=== PATIENT | female | born 1990 | race Two or more races ===

== ENCOUNTER 2016-10-14 21:05 | Emergency (ER) | payer MEDICAID, OTHER ==
[2016-10-14] MEDS ORDERED: LIDOCAINE 1% 5 ML (METHYLPARABEN FREE) INF ONE (21:15)
[2016-10-14] MEDS ORDERED: BUPIVACAINE 0.25% 30 ML VIAL INF ONE (21:15)
[2016-10-14 21:16] VITALS: BP 123/75; PULSE 76; TEMP 98.6; BMI 19.1
[2016-10-14] MEDS ORDERED: TETANUS-DIPTHERIA-ACEL PERTUSS 0.5 ML SYR IM ONE (21:16)
--- NOTE | 2016-10-14 21:18 | EDPRACDOC ---
- General Information Stated Complaint: LEFT 4TH FINGER LAC Time Seen by Provider: 10/14/16 21:11 Information Source: Patient Home Medications: Home Medications POTASSIUM CHLORIDE Tablet [Klor-Con M20] 20 meq PO DAILY #30 tab 04/21/15 Tramadol HCl [Ultram] 50 mg PO Q6H #14 tab 04/21/15 Allergies/Adverse Reactions: Allergies Allergy/AdvReac Type Severity Reaction Status Date / Time codeine Allergy Hives* Verified 10/14/16 21:20 penicillin G Allergy Hives* Verified 10/14/16 21:20 - History of Present Illness Onset: 7 pm HPI: Pt states cut L 4h finger on conveyer belt at work around 7 pm. Tetanus unknown. Denies numbness Location: Reports: Left, 4th Finger Dominant Hand: Right Mechanism: Reports: Spontaneous Circumstances: Reports: Work-Related Tetanus Up To Date?: No Associated Signs & Symptoms: Reports: Laceration ED Past Medical History - History Reviewed Yes Nurses notes reviewed and agree except as marked - Patient Medical History GI/ History: Denies: Urinary Tract Infection - Social Medical History Smoking Status: Never smoker ETOH: None Substance Abuse: None EDM Review of Systems - Review of Systems Constitutional: No Symptoms Reported. negative: Fever, Chills, Weakness, Fatigue, Loss of Appetite Neurological: No Symptoms Reported. negative: Headache, Dizziness, Seizure, Numbness, Weakness, Speech Difficulty, Gait Difficulty Musculoskeletal: Hand Integumentary: Wound Allergic/Immunologic: No Symptoms Reported. negative: Hives, Itching Hematologic: No Symptoms Reported. negative: Lymphadenopathy, Easy Bruising, Easy Bleeding Psychiatric: No Symptoms Reported. negative: Anxiety, Depression, Hallucinations, Insomnia, Suicidal - Physical Exam Constitutional: Alert Oriented to: Time, Person, Place Last recorded Vital Signs: Last Vital Signs Temp 98.6 F 10/14/16 21:15 Pulse 76 10/14/16 21:15 Resp 18 10/14/16 21:15 BP 123/75 10/14/16 21:15 Pulse Ox 99 10/14/16 21:15 Oxygen Pulse Oxygen Saturation 99 O2 Device Room Air Oxygen Flow Rate Fraction of Inspired Oxygen ( FIO2) - HEENT Head: Normal ( normocephalic) - Respiratory/Cardiovascular Respiratory: Normal - CTA (BBS clear to auscultation without adventitious sounds ) Cardiovascular: Normal (RRR without murmur, gallop or rub) - Musculoskeletal Extremities: Normal (Normal tone, Pulses 2+ No cyanosis or edema, FROM) - Integumentary Skin: Normal, Warm, Dry Lymphatics: Normal (no adenopathy) - Neurologic Memory Impaired: Normal Motor Function: Normal (Normal tone, Pulses 2+ No cyanosis or edema, FROM) Mood Description: Normal Perception: Normal ED Hand Problem Physical Exam - Musculoskeletal Hand: Normal Wrist: Normal Digit: Mild Tenderness Digit Strength: Normal Nail: Normal Nailbed: Normal Soft Tissue: Normal Distal Function/Circulation: Normal - Integumentary Skin: Laceration Laceration Size (cm): 1 Laceration Type: Flap, Jagged Laceration Through To: Skin Tendon %: None Identified Lymphatics: Normal ED Procedures - Suture/Laceration Suture #1 Left Distal Finger Wound Length (cm): 2 Wound's Depth, Shape: irregular, flap Wound Explored: clean Irrigated w/ Saline (ccs): 50 Betadine Prep?: No Anesthesia: 1% Lidocaine, 0.25% Sensorcaine Volume Anesthetic (ccs): 3 Wound Repaired With: Sutures Suture Size/Type: 4:0, prolene Number of Sutures: 3 (simple) Layer Closure?: No - Differential Diagnosis Abrasion, Laceration, Open Fracture - Diagnostic Imaging Hand Image interpreted by: Radiologist IMPRESSION: No acute radiographic abnormality of the left fourth finger. Decision Time to Discharge: 22:19 - Departure Disposition: Home Condition: Good Final Diagnosis: L 4th finger lac 2 cm simple Instructions: Laceration (ED) Education/Counseling Given To: Patient Education/Counseling Given Regarding: Diagnosis, Treatment, Follow Up Referrals: None,No Provider [Primary Care Provider] - One Week Will Mcdowell MD [Staff Physician] - One Week Additional Instructions: Suture removed in 7-10 days. Return for worse or different symptoms.
--- NOTE | 2016-10-14 21:40 | DIRPT ---
CLINICAL DATA: 25-year-old female with injury to the left ring finger, with laceration of the tip of the finger. EXAM: LEFT FINGER(S) - 2+ VIEW COMPARISON: No priors. FINDINGS: Multiple views of the left fourth finger demonstrate no acute displaced fracture, subluxation, dislocation, or soft tissue abnormality. IMPRESSION: No acute radiographic abnormality of the left fourth finger. Electronically Signed By: Cassius Moctezuma M.D. On: 10/14/2016 21:37
== END 2016-10-14 22:26 | disposition home or self-care (01) ==
LOC: ED 21:05
DX: S61.215A Laceration without foreign body of left ring finger without damage to nail, initial encounter (principal); W45.8XXA Other foreign body or object entering through skin, initial encounter; Y93.89 Activity, other specified; Y99.0 Civilian activity done for income or pay; Z23 Encounter for immunization
CPT/HCPCS: 12001; 73140; 90471; 90715; 99283; J3490; S0020